=== PATIENT | male | born 1955 | race Caucasian/White ===

== ENCOUNTER 2018-11-18 12:22 | Emergency (ER) | payer MEDICARE ==
[~2018-11-18] VITALS: Ht 180.3 cm; Wt 90.7 kg
--- OUTSIDE RECORDS SUMMARY | 2018-11-18 12:25 | XMS REPORT ---
Author Author [facility] Address Unknown Phone Unavailable Care Team Providers Care Brand Sales Consultant Name Role Phone СВЕТЛАНА CAMPOS Unavailable Unavailable Problems This patient has no known problems. Allergies, Adverse Reactions, Alerts This patient has no known allergies or adverse reactions. Medications This patient has no known medications. Results Test Description Test Time Test Comments Text Results Atomic Results Result Comments UPPER GI W/AIR CONTR [place] [address] Patient Name: RHINA JIMENEZ MR #: [id number] : 1955 Age/Sex: 62/M Req #: [id number] Adm Physician: Ordered by: СВЕТЛАНА CAMPOS MD Report #: [id number] Location: DX Room/Bed: Procedure: [id number] DX/UPPER GI W/AIR CONTR Exam Date: 08/13/17 Exam Time: 0900 REPORT STATUS: Signed PROCEDURE: Double contrast upper GI COMPARISON: None. INDICATIONS: Hiatal hernia with gastroesophageal reflux. TECHNIQUE: Routine double contrast upper GI performed with thin barium, thick barium and effervescent air- producing crystals. FINDINGS: The esophagus demonstrates normal distensibility and mucosal contour. There is severe gastroesophageal reflux extending to the upper esophagus. Peristalsis is irregular, with poor bolus stripping and occasional tertiary waves. Normal stomach distensibility, contour and peristalsis. Normal duodenal bulb. Nonobstructive polypoid lesion within the second portion of the duodenum arising from the posterior duodenal margin. CONCLUSION: 1. Severe gastroesophageal reflux extending to the proximal esophagus. 2. Irregular esophageal peristalsis, with poor bolus stripping. No evidence of Lujan's esophagus. 3. Polypoid filling defect in the second portion of the duodenum. Wide differential including benign and malignant etiologies. 4. Consider GI referral for endoscopic evaluation. Dictated by: Akilah Fleming M.D. on 08/13/2017 at 9:57 Electronically approved by: Akilah Fleming M.D. on 08/13/2017 at 9:57 Dictated By: AKILAH FLEMING MD 6 Transcribed By: NOY on 08/13/17956 COPY TO: СВЕТЛАНА CAMPOS MD
[2018-11-18] MEDS ORDERED: SODIUM CHLORIDE 0.9% 1000ML 1,000 ML IV STA ×2 (13:48→14:37)
[2018-11-18] MEDS ORDERED: ONDANSETRON HCL INJ 2MG/ML 2ML 2 MG/ML VIAL IV STA (13:48)
[2018-11-18] MEDS ORDERED: MORPHINE SULFATE 5 MG/ML VIAL IV ONE (14:00)
[2018-11-18] MEDS ORDERED: MORPHINE SULFATE INJ 4 MG/ML INJ 1ML IV ONE (14:00)
[2018-11-18 14:22] LABS: BASOPHILS % 0.6 % (0.0-1.0); EOSINOPHILS % 0.3 % (0.0-6.0); HEMATOCRIT 41.5 % (38.2-49.6); HEMOGLOBIN 14.3 g/dL (14.0-18.0); LYMPHOCYTES # (AUTO) 0.6 (1.0-3.2); LYMPHOCYTES % 8.4 % (18.0-39.1); MEAN CORPUSCULAR HEMOGLOBIN 29.7 pg (28-32); MEAN CORPUSCULAR HGB CONC 34.5 g/dL (31-35); MEAN CORPUSCULAR VOLUME 86.1 fL (81-99); MONOCYTES # (AUTO) 0.6 (0.2-0.8); MONOCYTES % 8.9 % (4.4-11.3); NEUTROPHILS # (AUTO) 5.9 (2.1-6.9); NEUTROPHILS % 81.5 % (38.7-80.0); PLATELET COUNT 211 x10e3/uL (140-360); RED BLOOD COUNT 4.82 x10e6/uL (4.3-5.7); RED CELL DISTRIBUTION WIDTH 13.6 % (11.7-14.4)
[2018-11-18 14:25] LABS: INR 0.96; PROTHROMBIN TIME 13.7 seconds (11.9-14.5)
[2018-11-18 14:26] LABS: PARTIAL THROMBOPLASTIN TIME 30.1 seconds (23.8-35.5)
[2018-11-18 14:28] LABS: BILIRUBIN,URINE NEGATIVE (NEGATIVE); CLARITY,URINE SL CLOUDY (CLEAR); COLOR,URINE YELLOW (YELLOW); KETONES,URINE 1+ (NEGATIVE); LEUKOCYTE ESTERASE ,URINE NEGATIVE (NEGATIVE); NITRITE,URINE NEGATIVE (NEGATIVE); PROTEIN,URINE DIPSTICK TRACE (NEGATIVE); URINE UROBILINOGEN 0.2 mg/dL (0.2 - 1)
[2018-11-18 14:30] LABS: STREPTOCOCCUS GRP A ANTIGEN NEGATIVE (NEGATIVE)
[2018-11-18 14:37] LABS: ALANINE AMINOTRANSFERASE 38 IU/L (0-55); ALBUMIN 3.7 g/dL (3.5-5.0); ALBUMIN/GLOBULIN RATIO 1.1 (0.8-2.0); ALKALINE PHOSPHATASE 85 IU/L (40-150); ANION GAP 17.1 mmol/L (8-16); BLOOD UREA NITROGEN 14 mg/dL (7-26); BUN/CREATININE RATIO 13 (6-25); CALCIUM 9.3 mg/dL (8.4-10.2); CARBON DIOXIDE 24 mmol/L (22-29); CHLORIDE 90 mmol/L (98-107); CREATININE, SERUM 1.08 mg/dL (0.72-1.25); EST GLOMERULAR FILTRATION RATE > 60 ML/MIN (60-); GLUCOSE 102 mg/dL (74-118); MAGNESIUM 1.9 MG/DL (1.3-2.1); POTASSIUM 4.1 mmol/L (3.5-5.1); SODIUM 127 mmol/L (136-145)
[2018-11-18] MEDS ORDERED: ALBUTEROL SULF 0.083% NEB SOLN 3 ML NEB NEB STA (14:37)
--- NOTE | 2018-11-18 14:37 | NUR ---
MIKE FROM LAB CALLED TO REPORT PT IS FLU A+. INFORMED ALISON CAMERON WELL KATHIE ROBBINS PRIMARY NURSE FOR PT.
[2018-11-18 14:39] LABS: INFLUENZAE A&B ANTIGEN (RAPID) POSITIVE FLU A (NEGATIVE)
[2018-11-18] MEDS ORDERED: OSELTAMIVIR PHOSPHATE 75 MG CAP PO ONE (14:45)
[2018-11-18] MEDS ORDERED: CEFTRIAXONE SOD 1 GM/NS 50 ML 50 ML IV ONE (14:45)
[2018-11-18] MEDS ORDERED: IPRATROPIUM BROMIDE 0.02% 2.5 ML NEB NEB ONE (14:45)
[2018-11-18 14:49] LABS: BACTERIA,URINE MANY /HPF; EPITHELIAL CELLS,URINE RARE /LPF; MUCUS,URINE MODERATE (RARE)
--- NOTE | 2018-11-18 16:44 | Diagnostic Imaging Report ---
EXAM: CHEST 2 VIEWS, PA and lateral DATE: 11/18/2018 Time stamp on exam: 3:11 PM INDICATION: Cough COMPARISON: None FINDINGS: LINES/TUBES: None LUNGS: No consolidations or edema. PLEURA: No effusions or pneumothorax. HEART AND MEDIASTINUM: Normal size and contour. BONES AND SOFT TISSUES: No acute findings. IMPRESSION: No acute thoracic abnormality. Signed by: Dr. Reed Jean DO on 11/18/2018 4:40 PM
--- NOTE | 2018-11-18 16:52 | Diagnostic Imaging Report ---
Examination:CT SOFT TISSUE NECK WITH CONTRAST History: Sore throat with swelling of the entire neck. Comparison studies: None Technique: Axial images from the skull base to the thoracic inlet Coronal and sagittal reformatted images. Dose modulation, iterative reconstruction, and/or weight based adjustment of the mA/kV was utilized to reduce the radiation dose to as low as reasonably achievable. Intravenous contrast: 100mL of Omnipaque 300. Findings: Soft tissues: Diffuse reticulation of the subcutaneous fat and thickening of the platysma at the bilateral submandibular regions. There is heterogeneous enhancement and enlargement of the bilateral submandibular glands. No calcific densities identified within the intraglandular or extraglandular ducts or within the floor the mouth. Aerodigestive tract: No abnormality. Lymph nodes: No radiographically significant adenopathy. Vessels: Arteries and veins are patent. Atherosclerotic calcification of the proximal bilateral cervical internal carotid arteries. Thyroid gland: Normal in size and homogeneous. Submandibular glands: Normal in size and homogeneous. Parotid glands: Normal in size and homogeneous. Orbits: No abnormalities. Paranasal sinuses: Mild inflammatory mucosal thickening of the bilateral ethmoid air cells and left frontal, right sphenoid and right maxillary sinuses. Temporal bones: No abnormalities. Skull base and facial bones: Intact. Cervical spine: Anterior osteophyte at C5. Mild right and moderate left neural foraminal narrowing due to uncovertebral arthropathy at C3-C4. No canal stenosis. Moderate right and mild left neural foraminal narrowing at C4-C5 due to uncovertebral arthropathy. No canal stenosis. Asymmetric to the right disc osteophyte complex and bilateral uncovertebral arthropathy result in moderate right and mild left neural foraminal narrowing. No canal stenosis. The remaining cervical levels demonstrate no disc bulge or herniation or foraminal or canal stenosis. Visualized lung apices: No abnormalities. IMPRESSION: 1. Bilateral submandibular adenitis. 2. Degenerative changes cervical spine, as above. Signed by: Dr. Charlotte العراقي M.D. on 11/18/2018 4:49 PM
[2018-11-18 17:33] VITALS: BP 132/79
[2018-11-18 19:28] LABS: EOSINOPHILS % (MANUAL) 2 % (0-7); LYMPHOCYTES % (MANUAL) 7 % (19-48); METAMYELOCYTES % (MANUAL) 1 % (0-0); MONOCYTES % (MANUAL) 9 % (3.4-9.0); NEUTROPHILS % (MANUAL) 79 % (40-74); PLATELET ESTIMATE ADEQUATE; PLATELET MORPHOLOGY COMMENT NORMAL; RBC MORPHOLOGY COMMENT NORMAL
[2018-11-18] MEDS ORDERED: SODIUM CHLORIDE 0.9% 50ML 50 ML ONE (22:34)
[2018-11-18] MEDS ORDERED: IOPAMIDOL 370 MG/ML 200 ML INFUS..BTL INJ ONE (22:34)
== END 2018-11-18 17:37 | disposition home or self-care (01) ==
LOC: ER 12:22
DX: R50.9 Fever, unspecified (principal); R05 Cough; J11.1 Influenza due to unidentified influenza virus with other respiratory manifestations; R25.1 Tremor, unspecified
CPT/HCPCS: 36415; 70491; 71046; 80053; 81001; 83518; 83605; 83735; 85025; 85610; 85730; 87040; 87070; 87071; 87086; 87205; 87400; 94640; 99284; J0696; J2270; J2405; J7030; Q9967

== ENCOUNTER 2021-03-04 10:16 | Observation (INO) | payer MEDICARE ==
[~2021-03-04] VITALS: Ht 180.3 cm; Wt 88.5 kg
[2021-03-04] MEDS ORDERED: SODIUM CHLORIDE 0.9% 1000ML 1,000 ML IV STA (10:45)
[2021-03-04] MEDS ORDERED: ONDANSETRON HCL INJ 2MG/ML 2ML 2 MG/ML VIAL IV PRN ×3 (10:45→14:30)
[2021-03-04 10:58] LABS: BASOPHILS # (AUTO) 0.1 (0.0-0.1); BASOPHILS % 0.3 % (0.0-1.0); EOSINOPHILS % 0.3 % (0.0-6.0); HEMATOCRIT 50.3 % (38.2-49.6); HEMOGLOBIN 16.9 g/dL (14.0-18.0); LYMPHOCYTES # (AUTO) 1.1 (1.0-3.2); MEAN CORPUSCULAR HEMOGLOBIN 30.5 pg (28-32); MEAN CORPUSCULAR HGB CONC 33.6 g/dL (31-35); MEAN CORPUSCULAR VOLUME 90.8 fL (81-99); MONOCYTES # (AUTO) 0.8 (0.2-0.8); NEUTROPHILS # (AUTO) 13.9 (2.1-6.9); NEUTROPHILS % 86.9 % (38.7-80.0); PLATELET COUNT 270 x10e3/uL (140-360); RED BLOOD COUNT 5.54 x10e6/uL (4.3-5.7); RED CELL DISTRIBUTION WIDTH 14.6 % (11.7-14.4)
[2021-03-04] MEDS ORDERED: FENTANYL CITRATE/PF 100MCG/2 ML INJ IV PRN (11:15)
[2021-03-04 11:29] LABS: ANION GAP 16.9 mmol/L (8-16); CALCIUM 9.8 mg/dL (8.4-10.2); CREATININE, SERUM 1.22 mg/dL (0.72-1.25); POTASSIUM 3.9 mmol/L (3.5-5.1)
[2021-03-04] MEDS ORDERED: NEOSTIGMINE 1 MG/ML 10ML VIAL ONE (11:59)
[2021-03-04] MEDS ORDERED: POVIDONE IODINE 0.05% 0.05 % ML PO ONE (11:59)
[2021-03-04] MEDS ORDERED: LIDOCAINE HCL 2% LOCAL INJ 5 ML SDV VIAL INJ ONE (11:59)
[2021-03-04] MEDS ORDERED: ONDANSETRON HCL INJ 2MG/ML 2ML 2 MG/ML VIAL ONE (11:59)
[2021-03-04] MEDS ORDERED: ROCURONIUM BROMIDE 10 MG/ML 5ML VIAL IV ONE (11:59)
[2021-03-04] MEDS ORDERED: DEXAMETHASONE SOD PHOS INJ 4 MG/ML VIAL ONE (11:59)
[2021-03-04] MEDS ORDERED: SEVOFLURANE INHAL SOLN 250 ML PEN BTL ONE (11:59)
[2021-03-04] MEDS ORDERED: PROPOFOL IV EMULSION 10 MG/ML 20 ML VIAL ONE (11:59)
[2021-03-04] MEDS ORDERED: GLYCOPYRROLATE INJ 0.2 MG/ML VIAL ONE (11:59)
[2021-03-04] MEDS ORDERED: CEFOXITIN SOD 1 GM VIAL ONE (11:59)
[2021-03-04] MEDS ORDERED: PIPERACILLIN/TAZO 4.5 GM 100 ML IV STA (12:37)
[2021-03-04] MEDS ORDERED: MORPHINE SULFATE INJ 2 MG/ML SYR IV PRN (12:45)
[2021-03-04] MEDS ORDERED: SODIUM CHLORIDE 0.9% 1000ML 1,000 ML IV SCH (12:45)
[2021-03-04 12:58] LABS: CLARITY,URINE CLEAR (CLEAR); COLOR,URINE YELLOW (YELLOW); KETONES,URINE NEGATIVE (NEGATIVE); LEUKOCYTE ESTERASE ,URINE NEGATIVE (NEGATIVE); NITRITE,URINE NEGATIVE (NEGATIVE); PROTEIN,URINE DIPSTICK NEGATIVE (NEGATIVE); URINE UROBILINOGEN 0.2 mg/dL (0.2 - 1)
[2021-03-04] MEDS ORDERED: BUPIVACAINE HCL 0.5% INJ 30 ML VIAL INJ ONE (13:00)
[2021-03-04 13:06] LABS: MUCUS,URINE RARE (RARE); RBC,URINE 0-5 /HPF (0-5); WBC,URINE (MAN) 0-5 /HPF (0-5)
[2021-03-04] MEDS ORDERED: IOPAMIDOL 370 MG/ML 200 ML INFUS..BTL INJ ONE (13:23)
[2021-03-04] MEDS ORDERED: SODIUM CHLORIDE 0.9% 50ML 50 ML ONE (13:23)
[2021-03-04] MEDS ORDERED: ACETAMINOPHEN 325 MG TAB PO PRN (14:30)
[2021-03-04] MEDS ORDERED: HYDROCODONE/APAP 5MG-325MG TAB PO PRN (14:30)
[2021-03-04] MEDS ORDERED: SUGAMMADEX SODIUM 200 MG/2 ML VIAL IV ONE (14:47)
[2021-03-04] MEDS ORDERED: MORPHINE SULFATE INJ 10 MG/ML IV PRN (15:00)
[2021-03-04] MEDS ORDERED: FENTANYL CITRATE/PF 100MCG/2 ML INJ ONE ×3 (15:00→19:25)
[2021-03-04 16:30] VITALS: BP 146/90
[2021-03-04 16:31] VITALS: BP 146/90
[2021-03-04] MEDS ORDERED: PRINIVIL20 MG PO (17:40)
[2021-03-04] MEDS ORDERED: DICYCLOMINE HCL20 MG PO (17:40)
[2021-03-04] MEDS ORDERED: PRILOSEC OTC20 MG PO (17:40)
[2021-03-04] MEDS ORDERED: tylenol #4 PO (17:44)
[2021-03-04] MEDS ORDERED: CEFOXITIN 2GM/ D5W 50ML 50 ML IV SCH (18:00)
[2021-03-04] MEDS: MORPHINE SULFATE INJ 4 MG/ML INJ 1ML IV PRN ×2 (18:07→22:40)
[2021-03-04] MEDS: CEFOXITIN 2GM/ D5W 50ML 50 ML IV SCH (18:07)
[2021-03-04] MEDS: SODIUM CHLORIDE 0.9% 1000ML 1,000 ML IV SCH (18:07)
[2021-03-04] MEDS ORDERED: MIDAZOLAM HCL 2 MG/2 ML VIAL ONE (19:25)
[2021-03-04 20:00] VITALS: BP 143/88
[2021-03-04 21:01] VITALS: BP 143/88
[2021-03-04 22:50] VITALS: BP 143/88
[2021-03-05] VITALS: BP 138/88
[2021-03-05 04:00] VITALS: BP 156/87
[2021-03-05] MEDS: MORPHINE SULFATE INJ 4 MG/ML INJ 1ML IV PRN (04:48)
[2021-03-05 04:50] LABS: BASOPHILS % 0.2 % (0.0-1.0); HEMATOCRIT 42.8 % (38.2-49.6); LYMPHOCYTES # (AUTO) 0.6 (1.0-3.2); LYMPHOCYTES % 4.9 % (18.0-39.1); MEAN CORPUSCULAR HEMOGLOBIN 29.9 pg (28-32); MEAN CORPUSCULAR HGB CONC 32.7 g/dL (31-35); MEAN CORPUSCULAR VOLUME 91.5 fL (81-99); MONOCYTES # (AUTO) 0.7 (0.2-0.8); MONOCYTES % 5.4 % (4.4-11.3); NEUTROPHILS # (AUTO) 11.6 (2.1-6.9); PLATELET COUNT 229 x10e3/uL (140-360); RED BLOOD COUNT 4.68 x10e6/uL (4.3-5.7); RED CELL DISTRIBUTION WIDTH 14.7 % (11.7-14.4)
[2021-03-05 05:11] LABS: ANION GAP 13.2 mmol/L (8-16); BLOOD UREA NITROGEN 15 mg/dL (7-26); BUN/CREATININE RATIO 14 (6-25); CALCIUM 8.7 mg/dL (8.4-10.2); CARBON DIOXIDE 21 mmol/L (22-29); CHLORIDE 107 mmol/L (98-107); CREATININE, SERUM 1.06 mg/dL (0.72-1.25); EST GLOMERULAR FILTRATION RATE > 60 ML/MIN (60-); GLUCOSE 122 mg/dL (74-118); POTASSIUM 4.2 mmol/L (3.5-5.1); SODIUM 137 mmol/L (136-145)
[2021-03-05] MEDS: CEFOXITIN 2GM/ D5W 50ML 50 ML IV SCH ×2 (06:00)
[2021-03-05] MEDS: SODIUM CHLORIDE 0.9% 1000ML 1,000 ML IV SCH (06:00)
[2021-03-05] MEDS ORDERED: ULTRACET TABLE1 EACH PO (06:06)
[2021-03-05 07:34] VITALS: BP 134/93
[2021-03-05 08:09] VITALS: BP 134/93
[2021-03-05] MEDS ORDERED: LISINOPRIL 20 MG TAB PO SCH (09:00)
[2021-03-05] MEDS ORDERED: ONDANSETRON HCL 4 MG ORAL DISINTEGRATING TAB PO PRN (09:45)
[2021-03-06] MEDS ORDERED: HYDROCODON-ACE1 EA11 PO (15:13)
== END 2021-03-05 10:35 | disposition home or self-care (01) ==
LOC: ER 11:01 → OR 12:44 → PACU V 12:45 → ERHOLD 13:22 → UNDOADMOB 13:22 → OR 15:09 → MED/SURG 16:25
PROVIDERS: ADMIT Internal Medicine; ATTEND Internal Medicine
DX: K35.80 Unspecified acute appendicitis (principal); Z20.822 Contact with and (suspected) exposure to COVID-19; F98.8 Other specified behavioral and emotional disorders with onset usually occurring in childhood and adolescence; K58.9 Irritable bowel syndrome, unspecified; I10 Essential (primary) hypertension
CPT/HCPCS: 36415 ×2; 44970; 74177; 80048; 80053; 81001; 83605; 83690; 85025 ×2; 87040; 88304; 93005; 96361; 99284; G0378 ×2; J0694 ×3; J1100; J2001; J2250; J2270 ×2; J2405; J2704; J2710; J3010; J7030 ×2; Q9967; U0002

== ENCOUNTER 2021-03-06 13:23 | Emergency (ER) | payer MEDICARE ==
[~2021-03-06] VITALS: Ht 180.3 cm; Wt 88.5 kg
[~2021-03-06 13:23] MED LIST: DICYCLOMINE HCL20 MG PO; PRILOSEC OTC20 MG PO; PRINIVIL20 MG PO; ULTRACET TABLE1 EACH PO; tylenol #4 PO
[2021-03-06] MEDS ORDERED: ONDANSETRON HCL INJ 2MG/ML 2ML 2 MG/ML VIAL IV STA (13:33)
[2021-03-06] MEDS ORDERED: MORPHINE SULFATE INJ 4 MG/ML INJ 1ML IV STA (13:33)
[2021-03-06 13:58] LABS: BASOPHILS # (AUTO) 0.1 (0.0-0.1); BASOPHILS % 0.7 % (0.0-1.0); EOSINOPHILS # (AUTO) 0.4 (0.0-0.4); EOSINOPHILS % 5.2 % (0.0-6.0); HEMATOCRIT 45.5 % (38.2-49.6); HEMOGLOBIN 14.8 g/dL (14.0-18.0); LYMPHOCYTES # (AUTO) 1.3 (1.0-3.2); LYMPHOCYTES % 15.5 % (18.0-39.1); MEAN CORPUSCULAR HEMOGLOBIN 30.4 pg (28-32); MEAN CORPUSCULAR HGB CONC 32.5 g/dL (31-35); MEAN CORPUSCULAR VOLUME 93.4 fL (81-99); MONOCYTES # (AUTO) 0.5 (0.2-0.8); MONOCYTES % 5.3 % (4.4-11.3); NEUTROPHILS # (AUTO) 6.2 (2.1-6.9); NEUTROPHILS % 73.1 % (38.7-80.0); PLATELET COUNT 249 x10e3/uL (140-360); RED BLOOD COUNT 4.87 x10e6/uL (4.3-5.7); RED CELL DISTRIBUTION WIDTH 15.1 % (11.7-14.4)
[2021-03-06 14:17] LABS: ALANINE AMINOTRANSFERASE 91 IU/L (0-55); ALBUMIN 3.5 g/dL (3.5-5.0); ALBUMIN/GLOBULIN RATIO 0.8 (0.8-2.0); ALKALINE PHOSPHATASE 76 IU/L (40-150); ANION GAP 16.8 mmol/L (8-16); BLOOD UREA NITROGEN 19 mg/dL (7-26); BUN/CREATININE RATIO 18 (6-25); CALCIUM 9.5 mg/dL (8.4-10.2); CARBON DIOXIDE 22 mmol/L (22-29); CHLORIDE 105 mmol/L (98-107); CREATININE, SERUM 1.08 mg/dL (0.72-1.25); EST GLOMERULAR FILTRATION RATE > 60 ML/MIN (60-); GLUCOSE 94 mg/dL (74-118); POTASSIUM 3.8 mmol/L (3.5-5.1); SODIUM 140 mmol/L (136-145)
[2021-03-06] MEDS ORDERED: SODIUM CHLORIDE 0.9% 50ML 50 ML ONE (14:41)
[2021-03-06] MEDS ORDERED: IOPAMIDOL 370 MG/ML 200 ML INFUS..BTL INJ ONE (14:42)
[2021-03-06] MEDS ORDERED: HYDROCODON-ACE1 EA11 PO (15:13)
== END 2021-03-06 15:54 | disposition home or self-care (01) ==
LOC: ER 13:35
DX: G89.18 Other acute postprocedural pain (principal); R10.31 Right lower quadrant pain; I10 Essential (primary) hypertension
CPT/HCPCS: 36415; 74177; 80053; 85025; 99284; J2270; J2405; Q9967

== ENCOUNTER 2021-04-04 12:46 | Emergency (ER) | payer MEDICARE ==
[~2021-04-04] VITALS: Ht 180.3 cm; Wt 88.5 kg
[~2021-04-04 12:46] MED LIST changes: +HYDROCODON-ACE1 EA11 PO
[2021-04-04] MEDS ORDERED: SODIUM CHLORIDE 0.9% 1000ML 1,000 ML IV STA (13:11)
[2021-04-04 13:39] LABS: BASOPHILS % 0.5 % (0.0-1.0); EOSINOPHILS # (AUTO) 0.1 (0.0-0.4); EOSINOPHILS % 1.1 % (0.0-6.0); HEMATOCRIT 52.1 % (38.2-49.6); HEMOGLOBIN 17.3 g/dL (14.0-18.0); LYMPHOCYTES # (AUTO) 1.1 (1.0-3.2); LYMPHOCYTES % 14.6 % (18.0-39.1); MEAN CORPUSCULAR HGB CONC 33.2 g/dL (31-35); MEAN CORPUSCULAR VOLUME 90.5 fL (81-99); MONOCYTES # (AUTO) 0.4 (0.2-0.8); MONOCYTES % 5.8 % (4.4-11.3); NEUTROPHILS # (AUTO) 5.9 (2.1-6.9); NEUTROPHILS % 77.5 % (38.7-80.0); PLATELET COUNT 257 x10e3/uL (140-360); RED BLOOD COUNT 5.76 x10e6/uL (4.3-5.7); RED CELL DISTRIBUTION WIDTH 15.2 % (11.7-14.4)
[2021-04-04 13:52] LABS: CLARITY,URINE CLEAR (CLEAR); COLOR,URINE YELLOW (YELLOW); KETONES,URINE NEGATIVE (NEGATIVE); LEUKOCYTE ESTERASE ,URINE NEGATIVE (NEGATIVE); NITRITE,URINE NEGATIVE (NEGATIVE); PROTEIN,URINE DIPSTICK NEGATIVE (NEGATIVE); URINE UROBILINOGEN 0.2 mg/dL (0.2 - 1)
[2021-04-04 13:58] LABS: ALANINE AMINOTRANSFERASE 25 IU/L (0-55); ALBUMIN 4.6 g/dL (3.5-5.0); ALBUMIN/GLOBULIN RATIO 1.2 (0.8-2.0); ALKALINE PHOSPHATASE 71 IU/L (40-150); AMYLASE 31 U/L (25-125); ANION GAP 18.5 mmol/L (8-16); BLOOD UREA NITROGEN 10 mg/dL (7-26); BUN/CREATININE RATIO 9 (6-25); CALCIUM 9.7 mg/dL (8.4-10.2); CARBON DIOXIDE 24 mmol/L (22-29); CHLORIDE 101 mmol/L (98-107); CREATINE KINASE 124 IU/L (30-200); CREATININE, SERUM 1.13 mg/dL (0.72-1.25); EST GLOMERULAR FILTRATION RATE > 60 ML/MIN (60-); GLUCOSE 97 mg/dL (74-118); LIPASE 27 U/L (8-78); POTASSIUM 4.5 mmol/L (3.5-5.1); SODIUM 139 mmol/L (136-145)
[2021-04-04] MEDS ORDERED: IOPAMIDOL 370 MG/ML 200 ML INFUS..BTL INJ ONE (14:18)
[2021-04-04] MEDS ORDERED: SODIUM CHLORIDE 0.9% 50ML 50 ML ONE (14:18)
== END 2021-04-04 15:35 | disposition home or self-care (01) ==
LOC: ER 13:15
DX: R10.11 Right upper quadrant pain (principal); R10.12 Left upper quadrant pain; K57.90 Diverticulosis of intestine, part unspecified, without perforation or abscess without bleeding; I10 Essential (primary) hypertension
CPT/HCPCS: 36415; 74177; 80053; 80320; 81001; 82150; 82550; 82553; 83690; 84484; 85025; 87086; 93005; 99284; C9113; J7030; Q9967

== ENCOUNTER 2022-01-26 15:50 | Inpatient (IN) | payer MEDICARE ==
[~2022-01-26] VITALS: Ht 180.3 cm; Wt 93.5 kg
[2022-01-26] MEDS ORDERED: ONDANSETRON HCL INJ 2MG/ML 2ML 2 MG/ML VIAL IV STA (16:11)
[2022-01-26] MEDS ORDERED: SODIUM CHLORIDE 0.9% 1000ML 1,000 ML IV STA ×2 (16:11)
[2022-01-26] MEDS ORDERED: Morphine 4mg Syringe 4 MG/ML INJ IV ONE (16:15)
[2022-01-26 16:31] LABS: BASOPHILS % 0.4 % (0.0-1.0); EOSINOPHILS % 0.1 % (0.0-6.0); HEMOGLOBIN 15.5 g/dL (14.0-18.0); LYMPHOCYTES # (AUTO) 1.1 (1.0-3.2); LYMPHOCYTES % 11.8 % (18.0-39.1); MEAN CORPUSCULAR HEMOGLOBIN 31.2 pg (28-32); MEAN CORPUSCULAR HGB CONC 35.2 g/dL (31-35); MEAN CORPUSCULAR VOLUME 88.5 fL (81-99); MONOCYTES # (AUTO) 0.5 (0.2-0.8); MONOCYTES % 5.9 % (4.4-11.3); NEUTROPHILS # (AUTO) 7.5 (2.1-6.9); NEUTROPHILS % 81.6 % (38.7-80.0); PLATELET COUNT 275 x10e3/uL (140-360); RED BLOOD COUNT 4.97 x10e6/uL (4.3-5.7); RED CELL DISTRIBUTION WIDTH 13.5 % (11.7-14.4)
[2022-01-26 16:39] LABS: INR 0.92; PROTHROMBIN TIME 13.2 seconds (11.9-14.5)
[2022-01-26 16:40] LABS: PARTIAL THROMBOPLASTIN TIME 28.1 seconds (23.8-35.5)
[2022-01-26] MEDS ORDERED: Vancomycin IV 1 GM in SODIUM CHLORIDE 0.9% 250ML 250 ML IV STA (16:46)
[2022-01-26 16:49] LABS: ALBUMIN 4.7 g/dL (3.5-5.0); ALBUMIN/GLOBULIN RATIO 1.3 (0.8-2.0); ANION GAP 18.4 mmol/L (8-16); CALCIUM 9.7 mg/dL (8.4-10.2); CREATININE, SERUM 1.25 mg/dL (0.72-1.25); POTASSIUM 3.4 mmol/L (3.5-5.1)
[2022-01-26 16:54] LABS: B-TYPE NATRIURETIC PEPTIDE2 33.5 pg/mL (0-100)
[2022-01-26] MEDS ORDERED: SODIUM CHLORIDE 0.9% IV STA (16:54)
[2022-01-26 16:55] LABS: CREATINE KINASE MB 1.9 ng/mL (0-5.0)
[2022-01-26] MEDS ORDERED: HYDRALAZINE HCL 20 MG/ML VIAL IV STA (16:55)
[2022-01-26] MEDS ORDERED: IOPAMIDOL 370 MG/ML 100 ML INFUS..BTL INJ ONE (17:38)
[2022-01-26 17:51] LABS: CLARITY,URINE CLEAR (CLEAR); COLOR,URINE YELLOW (YELLOW); KETONES,URINE NEGATIVE (NEGATIVE); LEUKOCYTE ESTERASE ,URINE NEGATIVE (NEGATIVE); NITRITE,URINE NEGATIVE (NEGATIVE); PROTEIN,URINE DIPSTICK NEGATIVE (NEGATIVE); URINE UROBILINOGEN 0.2 mg/dL (0.2 - 1)
[2022-01-26 17:54] LABS: AMPHETAMINES SCREEN,URINE POSITIVE (NEGATIVE); BENZODIAZEPINES SCREEN,URINE NEGATIVE (NEGATIVE); PHENCYCLIDINE SCREEN,URINE NEGATIVE (NEGATIVE)
[2022-01-26] MEDS: SODIUM CHLORIDE 0.9% 1000ML 1,000 ML IV SCH (20:04)
[2022-01-26] MEDS: Morphine 4mg Syringe 4 MG/ML INJ IV PRN (20:51)
[2022-01-26] MEDS: ONDANSETRON HCL INJ 2MG/ML 2ML 2 MG/ML VIAL IV PRN (20:51)
[2022-01-26] MEDS: HYDRALAZINE HCL 20 MG/ML VIAL IV PRN (21:25)
[2022-01-26 21:40] VITALS: BP 164/98
[2022-01-26 21:55] VITALS: BP 164/98
[2022-01-26] MEDS ORDERED: PROMETHAZINE 25MG/ NS 50ML (IV) IV PRN (22:15)
[2022-01-26] MEDS: ACETAMINOPHEN 325 MG TAB PO PRN (22:16)
[2022-01-26] MEDS ORDERED: TIZANIDINE HCL4 MG PO (22:18)
[2022-01-26] MEDS ORDERED: DIPHENOXYLATE-1 EACH PO (22:38)
[2022-01-26] MEDS ORDERED: HYOSCYAMINE0.125 MG PO (22:38)
[2022-01-26] MEDS ORDERED: PANTOPRAZOLE SO40 MG PO (22:38)
[2022-01-26] MEDS ORDERED: ATIVAN2 MG PO (22:38)
[2022-01-26] MEDS ORDERED: FLUOXETINE HCL40 MG PO (22:38)
[2022-01-26] MEDS ORDERED: ACETAMINOPHEN-1 EAC4 PO (22:38)
[2022-01-26 23:30] VITALS: BP 165/93
[2022-01-27] VITALS (8 sets, daily range): BP systolic 152–176; BP diastolic 85–100
[2022-01-27] MEDS: SODIUM CHLORIDE 0.9% 1000ML 1,000 ML IV SCH ×3 (04:42→22:17)
[2022-01-27] MEDS: Morphine 4mg Syringe 4 MG/ML INJ IV PRN ×4 (04:42→17:25)
[2022-01-27 05:22] LABS: BASOPHILS % 0.2 % (0.0-1.0); HEMATOCRIT 38.4 % (38.2-49.6); LYMPHOCYTES # (AUTO) 0.5 (1.0-3.2); LYMPHOCYTES % 6.2 % (18.0-39.1); MEAN CORPUSCULAR HEMOGLOBIN 30.7 pg (28-32); MEAN CORPUSCULAR HGB CONC 33.9 g/dL (31-35); MEAN CORPUSCULAR VOLUME 90.8 fL (81-99); MONOCYTES # (AUTO) 0.4 (0.2-0.8); MONOCYTES % 5.4 % (4.4-11.3); NEUTROPHILS # (AUTO) 7.1 (2.1-6.9); NEUTROPHILS % 87.7 % (38.7-80.0); PLATELET COUNT 220 x10e3/uL (140-360); RED BLOOD COUNT 4.23 x10e6/uL (4.3-5.7); RED CELL DISTRIBUTION WIDTH 14.1 % (11.7-14.4)
[2022-01-27] MEDS: ACETAMINOPHEN 325 MG TAB PO PRN (06:10)
[2022-01-27 07:06] LABS: ALBUMIN 3.9 g/dL (3.5-5.0); ALBUMIN/GLOBULIN RATIO 1.5 (0.8-2.0); ANION GAP 14.6 mmol/L (8-16); CALCIUM 8.3 mg/dL (8.4-10.2); CREATININE, SERUM 1.02 mg/dL (0.72-1.25); MAGNESIUM 1.7 MG/DL (1.3-2.1); POTASSIUM 3.6 mmol/L (3.5-5.1)
[2022-01-27] MEDS: PANTOPRAZOLE SOD 40 MG TABEC PO SCH (09:03)
[2022-01-27] MEDS: HYDROCODONE/APAP 5MG-325MG TAB PO PRN (22:17)
[2022-01-28] MEDS: SODIUM CHLORIDE 0.9% 1000ML 1,000 ML IV SCH ×3 (02:03→18:21)
[2022-01-28 04:00] VITALS: BP 177/99
[2022-01-28] MEDS: HYDROCODONE/APAP 5MG-325MG TAB PO PRN ×4 (04:00→18:27)
[2022-01-28] MEDS: Morphine 4mg Syringe 4 MG/ML INJ IV PRN ×3 (06:40→14:47)
[2022-01-28] MEDS ORDERED: LEVOFLOXACIN250 MG PO (07:48)
[2022-01-28] MEDS: PANTOPRAZOLE SOD 40 MG TABEC PO SCH (08:18)
[2022-01-28] MEDS: DIPHENOXYLATE/ATROPINE TAB PO PRN (08:19)
[2022-01-28] MEDS: HYDRALAZINE HCL 20 MG/ML VIAL IV PRN ×2 (08:19→16:55)
[2022-01-28] MEDS: LORAZEPAM 1 MG TAB PO PRN (08:25)
[2022-01-28 08:43] VITALS: BP 197/95
[2022-01-28] MEDS: AMLODIPINE BESYLATE 5 MG TAB PO SCH (12:14)
[2022-01-28] MEDS: ONDANSETRON HCL INJ 2MG/ML 2ML 2 MG/ML VIAL IV PRN (17:45)
[2022-01-28 20:27] VITALS: BP 148/84
[2022-01-28 23:32] VITALS: BP 148/84
[2022-01-29 00:33] VITALS: BP 170/95
[2022-01-29] MEDS: HYDROCODONE/APAP 5MG-325MG TAB PO PRN ×3 (00:50→21:40)
[2022-01-29] MEDS: LORAZEPAM 1 MG TAB PO PRN ×2 (01:08→13:45)
[2022-01-29 05:47] VITALS: BP 164/83
[2022-01-29] MEDS: SODIUM CHLORIDE 0.9% 1000ML 1,000 ML IV SCH (06:00)
[2022-01-29 08:30] VITALS: BP 178/110
[2022-01-29] MEDS: AMLODIPINE BESYLATE 5 MG TAB PO SCH (08:32)
[2022-01-29] MEDS: PANTOPRAZOLE SOD 40 MG TABEC PO SCH (08:32)
[2022-01-29] MEDS: Morphine 4mg Syringe 4 MG/ML INJ IV PRN ×2 (08:33→15:30)
[2022-01-29 09:51] VITALS: BP 173/99
[2022-01-29] MEDS: DIPHENOXYLATE/ATROPINE TAB PO PRN (12:12)
[2022-01-29] MEDS: HYDRALAZINE HCL 20 MG/ML VIAL IV PRN (12:30)
[2022-01-29 19:42] VITALS: BP 158/88
[2022-01-29 21:44] VITALS: BP 158/88
[2022-01-30] MEDS: SODIUM CHLORIDE 0.9% 1000ML 1,000 ML IV SCH ×2 (03:28→09:42)
[2022-01-30 05:25] VITALS: BP 158/92
[2022-01-30] MEDS: HYDROCODONE/APAP 5MG-325MG TAB PO PRN (07:00)
[2022-01-30 07:57] VITALS: BP 162/96
[2022-01-30 08:23] VITALS: BP 162/96
[2022-01-30] MEDS: AMLODIPINE BESYLATE 5 MG TAB PO SCH (09:01)
[2022-01-30] MEDS: PANTOPRAZOLE SOD 40 MG TABEC PO SCH (09:01)
== END 2022-01-30 10:02 | disposition home or self-care (01) | DRG 872 ==
LOC: ER 16:00 → ERHOLD 18:16 → MED/SURG2 21:40 → OBSVTOIN 01-28 13:00
PROVIDERS: ADMIT Internal Medicine; ATTEND Internal Medicine
DX: A41.9 Sepsis, unspecified organism (principal); K57.92 Diverticulitis of intestine, part unspecified, without perforation or abscess without bleeding; E87.1 Hypo-osmolality and hyponatremia; K21.9 Gastro-esophageal reflux disease without esophagitis; I10 Essential (primary) hypertension; E87.5 Hyperkalemia; K52.9 Noninfective gastroenteritis and colitis, unspecified; F41.9 Anxiety disorder, unspecified; D64.9 Anemia, unspecified
CPT/HCPCS: 36415; 71045; 74177; 80053; 80307; 81001; 82150; 82550; 82553; 83605; 83690; 83735; 83880; 84484; 85025; 85610; 85730; 87040; 87086; 93005; 96366; 99284; G0378; J0360; J2270; J2405; J2543; J2550; J3370; J7030; J7050; Q9967; U0002

== ENCOUNTER 2022-02-27 17:35 | Emergency (ER) | payer MEDICARE ==
[~2022-02-27] VITALS: Ht 180.3 cm; Wt 93.4 kg
[~2022-02-27 17:35] MED LIST changes: +ACETAMINOPHEN-1 EAC4 PO; +ATIVAN2 MG PO; +DIPHENOXYLATE-1 EACH PO; +FLUOXETINE HCL40 MG PO; +HYOSCYAMINE0.125 MG PO; +LEVOFLOXACIN250 MG PO; +PANTOPRAZOLE SO40 MG PO; +TIZANIDINE HCL4 MG PO
[2022-02-27 18:50] LABS: BASOPHILS % 0.4 % (0.0-1.0); EOSINOPHILS % 0.4 % (0.0-6.0); HEMATOCRIT 36.8 % (38.2-49.6); HEMOGLOBIN 12.4 g/dL (14.0-18.0); LYMPHOCYTES # (AUTO) 0.8 (1.0-3.2); LYMPHOCYTES % 9.8 % (18.0-39.1); MEAN CORPUSCULAR HEMOGLOBIN 31.2 pg (28-32); MEAN CORPUSCULAR HGB CONC 33.7 g/dL (31-35); MEAN CORPUSCULAR VOLUME 92.7 fL (81-99); MONOCYTES # (AUTO) 0.4 (0.2-0.8); MONOCYTES % 4.4 % (4.4-11.3); NEUTROPHILS # (AUTO) 6.7 (2.1-6.9); NEUTROPHILS % 84.6 % (38.7-80.0); PLATELET COUNT 256 x10e3/uL (140-360); RED BLOOD COUNT 3.97 x10e6/uL (4.3-5.7); RED CELL DISTRIBUTION WIDTH 13.3 % (11.7-14.4)
[2022-02-27] MEDS ORDERED: ONDANSETRON HCL INJ 2MG/ML 2ML 2 MG/ML VIAL IV STA ×2 (19:06→21:46)
[2022-02-27 19:12] LABS: ALANINE AMINOTRANSFERASE 13 IU/L (0-55); ALBUMIN/GLOBULIN RATIO 1.2 (0.8-2.0); ALKALINE PHOSPHATASE 48 IU/L (40-150); ANION GAP 16.6 mmol/L (8-16); BLOOD UREA NITROGEN 17 mg/dL (7-26); BUN/CREATININE RATIO 14 (6-25); CALCIUM 8.6 mg/dL (8.4-10.2); CARBON DIOXIDE 19 mmol/L (22-29); CHLORIDE 96 mmol/L (98-107); CREATINE KINASE 110 IU/L (30-200); CREATININE, SERUM 1.23 mg/dL (0.72-1.25); EST GLOMERULAR FILTRATION RATE 59 ML/MIN (60-); GLUCOSE 110 mg/dL (74-118); POTASSIUM 3.6 mmol/L (3.5-5.1); SODIUM 128 mmol/L (136-145)
[2022-02-27] MEDS ORDERED: FENTANYL CITRATE/PF 100MCG/2 ML INJ IV ONE (19:15)
[2022-02-27 19:55] LABS: CLARITY,URINE SL CLOUDY (CLEAR); COLOR,URINE STRAW (YELLOW); KETONES,URINE NEGATIVE (NEGATIVE); LEUKOCYTE ESTERASE ,URINE NEGATIVE (NEGATIVE); NITRITE,URINE NEGATIVE (NEGATIVE); PROTEIN,URINE DIPSTICK NEGATIVE (NEGATIVE)
[2022-02-27 19:56] LABS: AMPHETAMINES SCREEN,URINE POSITIVE (NEGATIVE); BENZODIAZEPINES SCREEN,URINE NEGATIVE (NEGATIVE); PHENCYCLIDINE SCREEN,URINE NEGATIVE (NEGATIVE); URINE UROBILINOGEN 0.2 mg/dL (0.2 - 1)
[2022-02-27 20:06] LABS: BACTERIA,URINE RARE /HPF
[2022-02-27] MEDS ORDERED: IOPAMIDOL 370 MG/ML 100 ML INFUS..BTL INJ ONE (20:53)
[2022-02-27] MEDS ORDERED: FENTANYL CITRATE/PF 100MCG/2 ML INJ IV PRN (21:00)
[2022-02-27] MEDS ORDERED: ONDANSETRON HCL INJ 2MG/ML 2ML 2 MG/ML VIAL ONE (21:11)
[2022-02-27] MEDS ORDERED: DICYCLOMINE HCL20 MG PO (21:44)
[2022-02-27] MEDS ORDERED: ONDANSETRON ODT4 MG PO (21:44)
[2022-02-27] MEDS ORDERED: DONNATAL/LIDOCAINE/MAALOX 30 ML SUSP PO ONE (22:00)
[2022-02-27] MEDS ORDERED: MAGNESIUM/ALUMINUM/SIMETHICONE 30 ML UDC ONE (22:27)
[2022-02-27] MEDS ORDERED: LIDOCAINE VISC 2% SOLN 15 ML UDC ONE (22:27)
[2022-02-27] MEDS ORDERED: BELLADONNA ALK/PHENOBARBITAL 5 ML UDC ONE (22:27)
[2022-02-27 22:54] VITALS: BP 138/74
[2022-02-27] MEDS ORDERED: ACETAMINOPHEN 325 MG TAB PO ONE (23:30)
[2022-02-27] MEDS ORDERED: ACETAMINOPHEN 325 MG TAB ONE (23:31)
== END 2022-02-27 22:48 | disposition home or self-care (01) ==
LOC: ER 18:07
DX: R10.32 Left lower quadrant pain (principal); R11.2 Nausea with vomiting, unspecified; I10 Essential (primary) hypertension; R25.1 Tremor, unspecified; Z87.19 Personal history of other diseases of the digestive system
CPT/HCPCS: 36415; 70450; 74177; 80053; 80307; 80320; 81001; 82140; 82550; 82553; 84484; 85025; 93005; 99284; J2405; J3010; Q9967

== ENCOUNTER 2022-08-24 23:47 | Emergency (ER) | payer MEDICARE ==
[~2022-08-24] VITALS: Ht 180.3 cm; Wt 93.9 kg
[~2022-08-24 23:47] MED LIST changes: +ONDANSETRON ODT4 MG PO
[2022-08-24] MEDS ORDERED: ONDANSETRON HCL INJ 2MG/ML 2ML 2 MG/ML VIAL IV STA (23:52)
[2022-08-24] MEDS ORDERED: KETOROLAC TROMETHAMINE 30 MG/ML VIAL IV STA (23:52)
[2022-08-25 00:17] LABS: BASOPHILS % 0.3 % (0.0-1.0); EOSINOPHILS # (AUTO) 0.1 (0.0-0.4); EOSINOPHILS % 1.1 % (0.0-6.0); HEMATOCRIT 42.8 % (38.2-49.6); HEMOGLOBIN 14.7 g/dL (14.0-18.0); LYMPHOCYTES # (AUTO) 1.6 (1.0-3.2); LYMPHOCYTES % 15.1 % (18.0-39.1); MEAN CORPUSCULAR HEMOGLOBIN 30.1 pg (28-32); MEAN CORPUSCULAR HGB CONC 34.3 g/dL (31-35); MEAN CORPUSCULAR VOLUME 87.5 fL (81-99); MONOCYTES # (AUTO) 0.8 (0.2-0.8); MONOCYTES % 7.6 % (4.4-11.3); NEUTROPHILS % 75.6 % (38.7-80.0); PLATELET COUNT 293 x10e3/uL (140-360); RED BLOOD COUNT 4.89 x10e6/uL (4.3-5.7); RED CELL DISTRIBUTION WIDTH 11.8 % (11.7-14.4)
[2022-08-25 00:30] LABS: CLARITY,URINE CLEAR (CLEAR); COLOR,URINE YELLOW (YELLOW); KETONES,URINE NEGATIVE (NEGATIVE); LEUKOCYTE ESTERASE ,URINE NEGATIVE (NEGATIVE); NITRITE,URINE NEGATIVE (NEGATIVE); PROTEIN,URINE DIPSTICK NEGATIVE (NEGATIVE)
[2022-08-25 00:31] LABS: BACTERIA,URINE FEW /HPF; EPITHELIAL CELLS,URINE FEW /LPF; RBC,URINE 0-5 /HPF (0-5); URINE UROBILINOGEN 0.2 mg/dL (0.2 - 1); WBC,URINE (MAN) 0-5 /HPF (0-5)
[2022-08-25 00:38] LABS: ALBUMIN 4.8 g/dL (3.5-5.0); ALBUMIN/GLOBULIN RATIO 1.4 (0.8-2.0); ANION GAP 19.2 mmol/L (8-16); CALCIUM 9.6 mg/dL (8.4-10.2); CREATININE, SERUM 1.17 mg/dL (0.72-1.25); POTASSIUM 3.2 mmol/L (3.5-5.1)
[2022-08-25 00:45] LABS: CREATINE KINASE MB 2.6 ng/mL (0-5.0)
[2022-08-25] MEDS ORDERED: POTASSIUM CHLORIDE 20 MEQ TAB CR PO STA (00:51)
[2022-08-25] MEDS ORDERED: SODIUM CHLORIDE 0.9% 1000ML 1,000 ML IV ONE (01:00)
[2022-08-25] MEDS ORDERED: SODIUM CHLORIDE 0.9% 1000ML 1,000 ML ONE (01:05)
[2022-08-25] MEDS ORDERED: IOPAMIDOL 370 MG/ML 100 ML INFUS..BTL INJ ONE (01:05)
[2022-08-25] MEDS ORDERED: POTASSIUM CHLORIDE 20 MEQ TAB CR PO ONE (01:05)
[2022-08-25 01:10] LABS: AMPHETAMINES SCREEN,URINE POSITIVE (NEGATIVE); BENZODIAZEPINES SCREEN,URINE NEGATIVE (NEGATIVE); PHENCYCLIDINE SCREEN,URINE NEGATIVE (NEGATIVE)
== END 2022-08-25 02:10 | disposition home or self-care (01) ==
LOC: ER 23:49
DX: R10.13 Epigastric pain (principal); K57.90 Diverticulosis of intestine, part unspecified, without perforation or abscess without bleeding; R11.0 Nausea
CPT/HCPCS: 36415; 74177; 80053; 80307; 81001; 82550; 82553; 83690; 84484; 85025; 93005; 99284; C9113; J1885; J2405; J7030; Q9967

== ENCOUNTER 2023-03-08 06:23 | Emergency (ER) | payer MEDICARE ==
[~2023-03-08] VITALS: Ht 180.3 cm; Wt 93.9 kg
[2023-03-08 06:40] VITALS: O2SAT 99
[2023-03-08] MEDS ORDERED: LEVSIN-SL0.125 MG SL (06:53)
[2023-03-08] MEDS ORDERED: ONDANSETRON ODT4 MG PO (06:53)
[2023-03-08] MEDS ORDERED: ONDANSETRON HCL 4 MG ORAL DISINTEGRATING TAB ONE (06:58)
[2023-03-08] MEDS ORDERED: ONDANSETRON HCL 4 MG ORAL DISINTEGRATING TAB PO ONE (07:00)
== END 2023-03-08 07:15 | disposition home or self-care (01) ==
LOC: ER 06:29
DX: R30.0 Dysuria (principal); N39.0 Urinary tract infection, site not specified; R11.2 Nausea with vomiting, unspecified; R10.9 Unspecified abdominal pain; I10 Essential (primary) hypertension; E78.5 Hyperlipidemia, unspecified; Z87.19 Personal history of other diseases of the digestive system
CPT/HCPCS: 99282; Q0162

== ENCOUNTER 2023-11-07 10:28 | Emergency (ER) | payer MEDICARE ==
[~2023-11-07] VITALS: Ht 180.3 cm; Wt 86.2 kg
[~2023-11-07 10:28] MED LIST changes: +AMBIEN5 MG PO; +LEVSIN-SL0.125 MG SL
[2023-11-07] MEDS ORDERED: SODIUM CHLORIDE 0.9% 1000ML 1,000 ML IV STA (10:38)
[2023-11-07] MEDS ORDERED: ONDANSETRON HCL INJ 2MG/ML 2ML 2 MG/ML VIAL IV PRN (10:45)
[2023-11-07] MEDS ORDERED: KETOROLAC TROMETHAMINE 30 MG/ML VIAL IM STA (10:56)
[2023-11-07] MEDS ORDERED: DICYCLOMINE HCL 20 MG/2 ML VIAL IM ONE (11:00)
[2023-11-07] MEDS ORDERED: FENTANYL CITRATE/PF 100MCG/2 ML INJ IV PRN (11:00)
[2023-11-07 11:01] LABS: BASOPHILS # (AUTO) 0.1 (0.0-0.1); BASOPHILS % 0.8 % (0.0-1.0); EOSINOPHILS # (AUTO) 0.1 (0.0-0.4); EOSINOPHILS % 1.3 % (0.0-6.0); HEMATOCRIT 49.1 % (38.2-49.6); HEMOGLOBIN 16.3 g/dL (14.0-18.0); LYMPHOCYTES # (AUTO) 1.3 (1.0-3.2); LYMPHOCYTES % 14.5 % (18.0-39.1); MEAN CORPUSCULAR HEMOGLOBIN 30.1 pg (28-32); MEAN CORPUSCULAR HGB CONC 33.2 g/dL (31-35); MEAN CORPUSCULAR VOLUME 90.8 fL (81-99); MONOCYTES # (AUTO) 0.5 (0.2-0.8); MONOCYTES % 5.1 % (4.4-11.3); NEUTROPHILS # (AUTO) 7.1 (2.1-6.9); NEUTROPHILS % 78.1 % (38.7-80.0); PLATELET COUNT 316 x10e3/uL (140-360); RED BLOOD COUNT 5.41 x10e6/uL (4.3-5.7); WHITE BLOOD COUNT 9.15 x10e3/uL (4.8-10.8)
[2023-11-07 11:06] LABS: BILIRUBIN,URINE NEGATIVE (NEGATIVE); CLARITY,URINE CLEAR (CLEAR); COLOR,URINE YELLOW (YELLOW); GLUCOSE, URINE NEGATIVE (NEGATIVE); KETONES,URINE NEGATIVE (NEGATIVE); LEUKOCYTE ESTERASE ,URINE SMALL (NEGATIVE); NITRITE,URINE NEGATIVE (NEGATIVE); PH,URINE 7 (5 - 7); PROTEIN,URINE DIPSTICK 2+ (NEGATIVE); URINE UROBILINOGEN 0.2 mg/dL (0.2 - 1)
[2023-11-07 11:20] LABS: ALBUMIN 4.8 g/dL (3.5-5.0); ALBUMIN/GLOBULIN RATIO 1.5 (0.8-2.0); ANION GAP 17.8 mmol/L (8-16); BILIRUBIN,TOTAL 0.7 mg/dL (0.2-1.2); CALCIUM 10.1 mg/dL (8.4-10.2); CREATININE, SERUM 1.38 mg/dL (0.72-1.25); POTASSIUM 3.8 mmol/L (3.5-5.1); TOTAL PROTEIN 8.1 g/dL (6.5-8.1)
[2023-11-07 11:21] LABS: BACTERIA,URINE FEW /HPF; EPITHELIAL CELLS,URINE FEW /LPF; RBC,URINE 0-5 /HPF (0-5); WBC,URINE (MAN) 0-5 /HPF (0-5)
[2023-11-07 11:22] LABS: MUCUS,URINE FEW (RARE)
[2023-11-07] MEDS ORDERED: IOPAMIDOL 370 MG/ML 100 ML INFUS..BTL INJ ONE (11:30)
[2023-11-07] MEDS ORDERED: ONDANSETRON ODT4 MG PO (12:23)
[2023-11-07 12:31] VITALS: BP 158/96; PULSE 87; RESP 16; TEMP 98.4; O2SAT 98
== END 2023-11-07 12:34 | disposition home or self-care (01) ==
LOC: ER 10:36
DX: R19.7 Diarrhea, unspecified (principal); K40.90 Unilateral inguinal hernia, without obstruction or gangrene, not specified as recurrent; R10.30 Lower abdominal pain, unspecified; E78.5 Hyperlipidemia, unspecified; K21.9 Gastro-esophageal reflux disease without esophagitis; F41.9 Anxiety disorder, unspecified; M54.9 Dorsalgia, unspecified; G89.29 Other chronic pain; Z87.19 Personal history of other diseases of the digestive system
CPT/HCPCS: 36415; 74177; 80053; 81001; 83690; 85025; 99284; J1885; J2405; J3010; J7030; Q9967

== ENCOUNTER 2024-02-27 09:39 | Emergency (ER) | payer MEDICARE ==
[~2024-02-27] VITALS: Ht 180.3 cm; Wt 93.0 kg
[~2024-02-27 09:39] MED LIST changes: +AMOX TR-K CLV1 EAC2 PO; +DICYCLOMINE HCL10 MG PO
[2024-02-27 09:56] VITALS: O2SAT 98
[2024-02-27 10:25] LABS: BASOPHILS % 0.4 % (0.0-1.0); EOSINOPHILS # (AUTO) 0.1 (0.0-0.4); EOSINOPHILS % 1.6 % (0.0-6.0); HEMATOCRIT 47.9 % (38.2-49.6); HEMOGLOBIN 16.3 g/dL (14.0-18.0); LYMPHOCYTES # (AUTO) 1.1 (1.0-3.2); MEAN CORPUSCULAR VOLUME 88.2 fL (81-99); MONOCYTES # (AUTO) 0.4 (0.2-0.8); MONOCYTES % 4.4 % (4.4-11.3); NEUTROPHILS # (AUTO) 6.5 (2.1-6.9); NEUTROPHILS % 79.3 % (38.7-80.0); PLATELET COUNT 237 x10e3/uL (140-360); RED BLOOD COUNT 5.43 x10e6/uL (4.3-5.7)
[2024-02-27 10:39] LABS: ALBUMIN 4.6 g/dL (3.5-5.0); ALBUMIN/GLOBULIN RATIO 1.3 (0.8-2.0); ANION GAP 17.9 mmol/L (8-16); BILIRUBIN,TOTAL 0.8 mg/dL (0.2-1.2); CALCIUM 10.2 mg/dL (8.4-10.2); CREATININE, SERUM 1.23 mg/dL (0.72-1.25); POTASSIUM 3.9 mmol/L (3.5-5.1); TOTAL PROTEIN 8.2 g/dL (6.5-8.1)
[2024-02-27] MEDS: DICYCLOMINE HCL 20 MG/2 ML VIAL IM ONE (10:54)
[2024-02-27] MEDS: KETOROLAC TROMETHAMINE 30 MG/ML VIAL IV STA (10:55)
== END 2024-02-27 11:16 | disposition home or self-care (01) ==
LOC: ER 09:48
DX: R10.32 Left lower quadrant pain (principal); I10 Essential (primary) hypertension; E78.5 Hyperlipidemia, unspecified; K21.9 Gastro-esophageal reflux disease without esophagitis; F41.9 Anxiety disorder, unspecified; M54.9 Dorsalgia, unspecified; G89.29 Other chronic pain; Z87.19 Personal history of other diseases of the digestive system
CPT/HCPCS: 36415; 80053; 83690; 85025; 99284; J0500; J1885

== ENCOUNTER 2024-08-13 16:27 | Emergency (ER) | payer MEDICARE ==
[~2024-08-13] VITALS: Ht 180.3 cm; Wt 93.0 kg
[2024-08-13 17:19] VITALS: PULSE 100; RESP 19; TEMP 99.1; O2SAT 99
[2024-08-13 18:00] LABS: INR 0.97; PROTHROMBIN TIME 13.4 seconds (11.9-14.5)
[2024-08-13 18:01] LABS: PARTIAL THROMBOPLASTIN TIME 28.2 seconds (23.8-35.5)
[2024-08-13 18:07] LABS: ALBUMIN 4.5 g/dL (3.5-5.0); ANION GAP 16.7 mmol/L (8-16); BILIRUBIN,TOTAL 0.8 mg/dL (0.2-1.2); CREATININE, SERUM 1.25 mg/dL (0.72-1.25); POTASSIUM 3.7 mmol/L (3.5-5.1)
[2024-08-13 18:09] LABS: MAGNESIUM 1.9 MG/DL (1.3-2.1)
[2024-08-13 18:15] LABS: TROPONIN I 0.01 ng/mL (0-0.300)
[2024-08-13 18:21] LABS: BASOPHILS # (AUTO) 0.1 (0.0-0.1); BASOPHILS % 0.8 % (0.0-1.0); EOSINOPHILS # (AUTO) 0.1 (0.0-0.4); EOSINOPHILS % 1.9 % (0.0-6.0); HEMOGLOBIN 15.7 g/dL (14.0-18.0); LYMPHOCYTES # (AUTO) 1.2 (1.0-3.2); LYMPHOCYTES % 19.5 % (18.0-39.1); MEAN CORPUSCULAR HEMOGLOBIN 30.7 pg (28-32); MEAN CORPUSCULAR HGB CONC 32.7 g/dL (31-35); MEAN CORPUSCULAR VOLUME 93.8 fL (81-99); MONOCYTES # (AUTO) 0.4 (0.2-0.8); MONOCYTES % 6.9 % (4.4-11.3); NEUTROPHILS # (AUTO) 4.3 (2.1-6.9); NEUTROPHILS % 69.1 % (38.7-80.0); PLATELET COUNT 253 x10e3/uL (140-360); RED BLOOD COUNT 5.12 x10e6/uL (4.3-5.7); RED CELL DISTRIBUTION WIDTH 13.2 % (11.7-14.4); WHITE BLOOD COUNT 6.19 x10e3/uL (4.8-10.8)
[2024-08-13] MEDS ORDERED: IOPAMIDOL 370 MG/ML 100 ML INFUS..BTL INJ ONE (18:37)
[2024-08-13 18:58] LABS: TOTAL PROTEIN 8.2 g/dL (6.5-8.1)
[2024-08-13 19:02] LABS: ALBUMIN/GLOBULIN RATIO 1.2 (0.8-2.0)
[2024-08-13] MEDS ORDERED: ONDANSETRON ODT4 MG SL (19:40)
[2024-08-13] MEDS ORDERED: PANTOPRAZOLE SO40 MG PO (19:40)
[2024-08-13] MEDS: DICYCLOMINE HCL 20 MG/2 ML VIAL IM ONE (19:41)
[2024-08-13] MEDS: SODIUM CHLORIDE 0.9% 1000ML 1,000 ML IV SCH (19:41)
[2024-08-13] MEDS: ONDANSETRON HCL INJ 2MG/ML 2ML 2 MG/ML VIAL IV STA (19:41)
== END 2024-08-13 19:45 | disposition home or self-care (01) ==
LOC: ER 17:09
DX: R50.9 Fever, unspecified (principal); K29.70 Gastritis, unspecified, without bleeding; K57.90 Diverticulosis of intestine, part unspecified, without perforation or abscess without bleeding; R10.30 Lower abdominal pain, unspecified; I10 Essential (primary) hypertension; E78.5 Hyperlipidemia, unspecified; K21.9 Gastro-esophageal reflux disease without esophagitis; F41.9 Anxiety disorder, unspecified; M54.9 Dorsalgia, unspecified; G89.29 Other chronic pain
CPT/HCPCS: 36415; 74177; 80053; 82550; 83690; 83735; 84484; 85025; 85610; 85730; 87040; 93005; 99284; J0500; J2405; J7030; Q9967

== ENCOUNTER 2024-10-04 08:50 | Emergency (ER) | payer MEDICARE ==
[~2024-10-04] VITALS: Ht 180.3 cm; Wt 93.0 kg
[~2024-10-04 08:50] MED LIST changes: +ONDANSETRON ODT4 MG SL
[2024-10-04 09:29] LABS: BASOPHILS # (AUTO) 0.1 (0.0-0.1); BASOPHILS % 0.8 % (0.0-1.0); EOSINOPHILS # (AUTO) 0.1 (0.0-0.4); EOSINOPHILS % 2.1 % (0.0-6.0); HEMATOCRIT 43.3 % (38.2-49.6); HEMOGLOBIN 14.6 g/dL (14.0-18.0); LYMPHOCYTES # (AUTO) 1.2 (1.0-3.2); LYMPHOCYTES % 17.4 % (18.0-39.1); MEAN CORPUSCULAR HEMOGLOBIN 30.6 pg (28-32); MEAN CORPUSCULAR HGB CONC 33.7 g/dL (31-35); MEAN CORPUSCULAR VOLUME 90.8 fL (81-99); MONOCYTES # (AUTO) 0.5 (0.2-0.8); MONOCYTES % 7.1 % (4.4-11.3); NEUTROPHILS # (AUTO) 4.8 (2.1-6.9); NEUTROPHILS % 72.3 % (38.7-80.0); PLATELET COUNT 250 x10e3/uL (140-360); RED BLOOD COUNT 4.77 x10e6/uL (4.3-5.7); RED CELL DISTRIBUTION WIDTH 12.3 % (11.7-14.4); WHITE BLOOD COUNT 6.62 x10e3/uL (4.8-10.8)
[2024-10-04] MEDS: ONDANSETRON HCL INJ 2MG/ML 2ML 2 MG/ML VIAL IV STA (09:44)
[2024-10-04] MEDS: SODIUM CHLORIDE 0.9% 1000ML 1,000 ML IV STA (09:45)
[2024-10-04 09:56] VITALS: TEMP 97.9
[2024-10-04 09:59] LABS: ALBUMIN 4.4 g/dL (3.5-5.0); ALBUMIN/GLOBULIN RATIO 1.4 (0.8-2.0); ANION GAP 16.7 mmol/L (8-16); BILIRUBIN,TOTAL 0.5 mg/dL (0.2-1.2); CALCIUM 9.4 mg/dL (8.4-10.2); CREATININE, SERUM 1.4 mg/dL (0.72-1.25); POTASSIUM 3.7 mmol/L (3.5-5.1); TOTAL PROTEIN 7.5 g/dL (6.5-8.1)
[2024-10-04 10:04] LABS: TROPONIN I 0.012 ng/mL (0-0.300)
[2024-10-04] MEDS ORDERED: IOPAMIDOL 370 MG/ML 100 ML INFUS..BTL INJ ONE (10:16)
[2024-10-04 10:31] LABS: BILIRUBIN,URINE NEGATIVE (NEGATIVE); CLARITY,URINE CLEAR (CLEAR); COLOR,URINE YELLOW (YELLOW); GLUCOSE, URINE NEGATIVE (NEGATIVE); KETONES,URINE NEGATIVE (NEGATIVE); LEUKOCYTE ESTERASE ,URINE NEGATIVE (NEGATIVE); NITRITE,URINE NEGATIVE (NEGATIVE); PH,URINE 5.5 (5 - 7); PROTEIN,URINE DIPSTICK NEGATIVE (NEGATIVE); URINE UROBILINOGEN 0.2 mg/dL (0.2 - 1)
[2024-10-04] MEDS: DICYCLOMINE HCL 20 MG/2 ML VIAL IM STA (10:42)
[2024-10-04] MEDS: KETOROLAC TROMETHAMINE 30 MG/ML VIAL IV STA (10:42)
[2024-10-04 11:30] VITALS: PULSE 91; RESP 18; O2SAT 97
[2024-10-04] MEDS ORDERED: ACETAMINOPHEN-1 EAC4 PO (11:48)
== END 2024-10-04 12:00 | disposition home or self-care (01) ==
LOC: ER 08:57
DX: R10.32 Left lower quadrant pain (principal); E87.1 Hypo-osmolality and hyponatremia; K57.90 Diverticulosis of intestine, part unspecified, without perforation or abscess without bleeding; R11.2 Nausea with vomiting, unspecified; I10 Essential (primary) hypertension; E78.5 Hyperlipidemia, unspecified; K21.9 Gastro-esophageal reflux disease without esophagitis; F41.9 Anxiety disorder, unspecified; M54.9 Dorsalgia, unspecified; G89.29 Other chronic pain
CPT/HCPCS: 36415; 74177; 80053; 81001; 82550; 83690; 84484; 85025; 99284; J0500; J1885; J2405; J7030; Q9967

== ENCOUNTER 2024-10-05 01:29 | Emergency (ER) | payer MEDICARE ==
[~2024-10-05] VITALS: Ht 180.3 cm; Wt 93.0 kg
[2024-10-05 01:37] VITALS: PULSE 100; RESP 20; TEMP 97.6; O2SAT 98
[2024-10-05] MEDS ORDERED: KETOROLAC TROMETHAMINE 30 MG/ML VIAL ONE (01:39)
[2024-10-05] MEDS: KETOROLAC TROMETHAMINE 30 MG/ML VIAL IM STA (01:43)
== END 2024-10-05 01:55 | disposition home or self-care (01) ==
LOC: ER 01:34
DX: R10.12 Left upper quadrant pain (principal); I10 Essential (primary) hypertension; E78.5 Hyperlipidemia, unspecified; K21.9 Gastro-esophageal reflux disease without esophagitis; F41.9 Anxiety disorder, unspecified; M54.9 Dorsalgia, unspecified; G89.29 Other chronic pain; Z87.19 Personal history of other diseases of the digestive system
CPT/HCPCS: 99282; J1885

== ENCOUNTER 2025-02-24 12:25 | Emergency (ER) | payer MEDICARE ==
[~2025-02-24] VITALS: Ht 180.3 cm; Wt 93.0 kg
[2025-02-24 12:27] VITALS: TEMP 97.5
[2025-02-24] MEDS ORDERED: ESCITALOPRAM OX10 MG PO (12:32)
[2025-02-24] MEDS ORDERED: ATORVASTATIN CA20 MG PO (12:32)
[2025-02-24 12:45] LABS: BASOPHILS % 0.4 % (0.0-1.0); EOSINOPHILS % 0.6 % (0.0-6.0); HEMATOCRIT 36.7 % (38.2-49.6); HEMOGLOBIN 12.8 g/dL (14.0-18.0); LYMPHOCYTES # (AUTO) 1.4 (1.0-3.2); LYMPHOCYTES % 20.3 % (18.0-39.1); MEAN CORPUSCULAR HEMOGLOBIN 30.5 pg (28-32); MEAN CORPUSCULAR HGB CONC 34.9 g/dL (31-35); MEAN CORPUSCULAR VOLUME 87.4 fL (81-99); MONOCYTES # (AUTO) 0.4 (0.2-0.8); MONOCYTES % 6.1 % (4.4-11.3); NEUTROPHILS # (AUTO) 4.8 (2.1-6.9); NEUTROPHILS % 72.3 % (38.7-80.0); PLATELET COUNT 213 x10e3/uL (140-360)
[2025-02-24] MEDS: SODIUM CHLORIDE 0.9% 1000ML 1,000 ML IV SCH (12:51)
[2025-02-24] MEDS: KETOROLAC TROMETHAMINE 30 MG/ML VIAL IV STA (12:51)
[2025-02-24] MEDS ORDERED: ONDANSETRON HCL INJ 2MG/ML 2ML 2 MG/ML VIAL ONE (12:58)
[2025-02-24] MEDS: ONDANSETRON HCL INJ 2MG/ML 2ML 2 MG/ML VIAL IV STA (13:06)
[2025-02-24 13:15] LABS: ALBUMIN 4.1 g/dL (3.5-5.0); ALBUMIN/GLOBULIN RATIO 1.5 (0.8-2.0); ANION GAP 17.3 mmol/L (8-16); BILIRUBIN,TOTAL 0.6 mg/dL (0.2-1.2); CALCIUM 8.7 mg/dL (8.4-10.2); CREATININE, SERUM 1.11 mg/dL (0.72-1.25); TOTAL PROTEIN 6.9 g/dL (6.5-8.1)
[2025-02-24] MEDS ORDERED: BELLADONNA ALK/PHENOBARBITAL 5 ML UDC ONE (13:15)
[2025-02-24] MEDS ORDERED: MAGNESIUM/ALUMINUM/SIMETHICONE 30 ML UDC ONE (13:15)
[2025-02-24 13:20] LABS: POTASSIUM 3.3 mmol/L (3.5-5.1)
[2025-02-24] MEDS: MAGNESIUM/ALUMINUM/SIMETHICONE 30 ML UDC PO ONE (13:22)
[2025-02-24] MEDS: LIDOCAINE VISC 2% SOLN 15 ML UDC PO ONE (13:22)
[2025-02-24] MEDS: BELLADONNA ALK/PHENOBARBITAL 5 ML UDC PO STA (13:22)
[2025-02-24] MEDS ORDERED: OMEPRAZOLE40 MG PO (13:58)
[2025-02-24] MEDS ORDERED: ONDANSETRON HCL4 MG PO (13:58)
[2025-02-24 14:00] VITALS: PULSE 88; RESP 18; O2SAT 95
== END 2025-02-24 14:31 | disposition home or self-care (01) ==
LOC: ER 12:30
DX: R06.02 Shortness of breath (principal); K29.70 Gastritis, unspecified, without bleeding; R11.0 Nausea; I10 Essential (primary) hypertension; E78.5 Hyperlipidemia, unspecified; K21.9 Gastro-esophageal reflux disease without esophagitis; F41.9 Anxiety disorder, unspecified; M54.9 Dorsalgia, unspecified; G89.29 Other chronic pain; Z87.19 Personal history of other diseases of the digestive system
CPT/HCPCS: 36415; 71045; 80053; 83690; 84484; 85025; 93005; 99284; J1885; J2405; J2470; J7030

== ENCOUNTER 2025-06-23 17:40 | Emergency (ER) | payer MEDICARE ==
[~2025-06-23] VITALS: Ht 180.3 cm; Wt 93.0 kg
[~2025-06-23 17:40] MED LIST changes: +ATORVASTATIN CA20 MG PO; +ESCITALOPRAM OX10 MG PO; +OMEPRAZOLE40 MG PO; +ONDANSETRON HCL4 MG PO
[2025-06-23 18:00] VITALS: PULSE 84; RESP 18; TEMP 98.3
[2025-06-23 19:04] LABS: BASOPHILS % 0.3 % (0.0-1.0); EOSINOPHILS % 3.5 % (0.0-6.0); LYMPHOCYTES % 19.9 % (18.0-39.1); MONOCYTES % 10.3 % (4.4-11.3); NEUTROPHILS % 65.7 % (38.7-80.0); RED CELL DISTRIBUTION WIDTH 13.0 % (11.7-14.4)
[2025-06-23 19:17] LABS: EST GLOMERULAR FILTRATION RATE 66.0 ML/MIN (>=60)
[2025-06-23] MEDS ORDERED: IOPAMIDOL 370 MG/ML 100 ML INFUS..BTL INJ ONE (19:23)
[2025-06-23 20:55] LABS: LEUKOCYTE ESTERASE ,URINE NEGATIVE (NEGATIVE); PROTEIN,URINE DIPSTICK NEGATIVE (NEGATIVE); URINE UROBILINOGEN 0.2 mg/dL (0.2 - 1)
[2025-06-23] MEDS ORDERED: PEPCID AC10 MG PO (21:11)
[2025-06-23] MEDS ORDERED: PROMETHAZINE HC25 M1 PO (21:11)
[2025-06-23] MEDS: Morphine 4mg INJECTION 4 MG/ML INJ IV STA (21:12)
[2025-06-23] MEDS: SODIUM CHLORIDE 0.9% 1000ML 1,000 ML IV STA (21:12)
[2025-06-23 21:13] LABS: WBC,URINE (MAN) 0-5 /HPF (0-5)
[2025-06-23] MEDS: ONDANSETRON HCL INJ 2MG/ML 2ML 2 MG/ML VIAL IV STA (21:13)
[2025-06-23 21:57] VITALS: BP 124/65; PULSE 74; RESP 18; TEMP 98.3; O2SAT 98
== END 2025-06-23 21:35 | disposition home or self-care (01) ==
LOC: ER 17:47
DX: R07.9 Chest pain, unspecified (principal); R10.10 Upper abdominal pain, unspecified; R11.2 Nausea with vomiting, unspecified; K57.90 Diverticulosis of intestine, part unspecified, without perforation or abscess without bleeding; K40.90 Unilateral inguinal hernia, without obstruction or gangrene, not specified as recurrent; I10 Essential (primary) hypertension; E78.5 Hyperlipidemia, unspecified; M54.9 Dorsalgia, unspecified; G89.29 Other chronic pain; K21.9 Gastro-esophageal reflux disease without esophagitis; F41.9 Anxiety disorder, unspecified; Z87.19 Personal history of other diseases of the digestive system
CPT/HCPCS: 36415; 71260; 74177; 80053; 81001; 83690; 84484; 85025; 93005; 99284; J2270; J2405; J7030; Q9967